=== PATIENT | female | born 1980 | race Caucasian/White ===

== ENCOUNTER 2017-05-25 11:40 | Inpatient (IN) | payer OTHER ==
[2017-05-25] MEDS ORDERED: DEXTROSE 5%-LACTATED RINGERS 1,000 ML IV SCH (12:45)
[2017-05-25] MEDS ORDERED: AMPICILLIN - 2 GM in SODIUM CHLORIDE 100 ML IVPB ONE ×2 (13:10→14:00)
[2017-05-25 13:38] VITALS: BMI 27.4
[2017-05-25 13:44] LABS: BASO % 0.2 % (0-2.0); EOS % 0.3 % (0-4.5); HEMATOCRIT 39.6 % (32.4-45.2); HEMOGLOBIN 13.1 GM/dL (10.7-15.3); LYMPH % 16.8 % (8-40); MCHC 33.1 g/dl (32.0-36.0); MEAN CELL VOLUME 87.5 fl (80-96); MEAN PLT VOLUME 8.2 fl (7.5-11.1); MONO % 8.1 % (3.8-10.2); NEUT % 74.6 % (42.8-82.8); PLATELET COUNT 292 K/MM3 (134-434); RBC 4.52 M/mm3 (3.60-5.2); RDW 15.1 % (11.6-15.6); WHITE BLOOD COUNT 8.1 K/mm3 (4.0-10.0)
[2017-05-25] MEDS ORDERED: AMPICILLIN SODIUM 2 GM VIAL ONE (13:54)
[2017-05-25 14:05] LABS: ANION GAP 14 (8-16); BLOOD UREA NITROGEN 7 mg/dL (7-18); CHLORIDE 105 mmol/L (98-107); CO2 21 mmol/L (21-32); CREATININE 0.5 mg/dL (0.55-1.02); GLUCOSE,RANDOM 74 mg/dL (74-106); POTASSIUM 4.1 mmol/L (3.5-5.1); SODIUM 140 mmol/L (136-145)
[2017-05-25 14:06] LABS: INR 0.96 (0.82-1.09); PROTHROMBIN TIME (PATIENT) 10.8 SEC (9.98-11.88)
[2017-05-25 14:08] LABS: ACTIVATED PTT 27.7 SECONDS (26.9-34.4)
[2017-05-25] MEDS ORDERED: AMPICILLIN - 1 GM in SODIUM CHLORIDE 100 ML IVPB SCH (18:00)
[2017-05-25] MEDS ORDERED: AMPICILLIN SODIUM 1 GM VIAL ONE (18:00)
[2017-05-25] MEDS ORDERED: ELECTROLYTE-148 SOLN 500 ML IV ONE (18:12)
--- NOTE | 2017-05-25 18:19 | HP ---
Past Medical History - Admission Chief Complaint: Labor pain History of Present Illness: 36 yo @ 39 weeks gestation, EDC 05/30/17, admitted for labor pain. upon admission she was 3cm dilated. History Source: Patient Limitations to Obtaining History: No Limitations - Past Medical History ...: 7 ...Para: 5 ...Term: 5 ...: 0 ...Spon : 1 ...Induced : 0 ...Multiple Gestation: 0 ...LMP: 09/13/16 ... Weeks Gestation by Dates: 36.2 ...EDC by Dates: 06/20/17 ...EDC by Sono: 05/30/17 - Past Surgical History Past Surgical History: Yes: None Hx Myomectomy: No Hx Transabdominal Cerclage: No - Smoking History Smoking history: Never smoked Have you smoked in the past 12 months: No - Alcohol/Substance Use Hx Alcohol Use: No History of Substance Use: reports: None - Social History Usual Living Arrangement: Yes: With Significant Other History of Recent Travel: No Home Medications - Allergies Allergies/Adverse Reactions: Allergies Allergy/AdvReac Type Severity Reaction Status Date / Time No Known Drug Allergies Allergy Verified 12/15/13 04:19 - Home Medications Home Medications: Ambulatory Orders Vitamins (Sjr) - 1 tab PO DAILY 12/15/13 Ibuprofen [Motrin -] 600 mg PO Q4H PRN #0 tablet 12/17/13 Vitamins (Sjr) - 1 tab PO DAILY #0 tablet 12/17/13 Family Disease History - Family Disease History Family History: Unremarkable Review of Systems - Review of Systems Constitutional: reports: No Symptoms Eyes: reports: No Symptoms HENT: reports: No Symptoms Neck: reports: No Symptoms Cardiovascular: reports: No Symptoms Respiratory: reports: No Symptoms Gastrointestinal: reports: No Symptoms Genitourinary: reports: Pain Breasts: reports: No Symptoms Reported Musculoskeletal: reports: No Symptoms Integumentary: reports: No Symptoms Neurological: reports: No Symptoms Endocrine: reports: No Symptoms Hematology/Lymphatic: reports: No Symptoms Psychiatric: reports: No Symptoms Pain Intensity: 6 Physical Exam - Maternity Vital Signs: Vital Signs Temperature 98.0 F 05/25/17 16:00 Pulse Rate 64 05/25/17 17:00 Respiratory Rate 18 05/25/17 17:00 Blood Pressure 101/67 05/25/17 17:00 O2 Sat by Pulse Oximetry (%) Constitutional: Yes: Well Nourished Eyes: Yes: Conjunctiva Clear HENT: Yes: Atraumatic Neck: Yes: Supple Cardiovascular: Yes: Regular Rate and Rhythm Lungs: Clear to auscultation Breast(s): Yes: WNL - Abdominal Exam/OB Number of Fetuses: Single Contractions: Yes Regularity: Irregular Intensity: Mild/Mod - Vaginal Exam/OB Dilatation (cm): 3 Effacement (%): 70 Amniotic Membrane Status: Intact Station: -2 - Physical Exam ...Motor Strength: WNL Psychiatric: Yes: Alert, Oriented - Labs Lab Results: CBC, BMP 05/25/17 13:20 05/25/17 13:20 Problem List - Problems (1) Pain during labor Code(s): O99.89 - OTH DISEASES AND CONDITIONS COMPL PREG/CHLDBRTH; R52 - PAIN, UNSPECIFIED (2) 39 weeks gestation of Code(s): Z3A.39 - 39 WEEKS GESTATION OF (3) Breech Code(s): O32.1XX0 - MATERNAL CARE FOR BREECH PRESENTATION, UNSP (4) Status post primary low transverse section Code(s): Z98.891 - HISTORY OF UTERINE SCAR FROM PREVIOUS SURGERY Assessment/Plan IUP @ 39 weeks Labor pain Admit to L&D Anticipate
--- NOTE | 2017-05-25 18:26 | PN ---
Progress Note (short form) - Note Progress Note: Patient seen and evaluated. She c/o mild discomfort. FHR : Reassuring Meggett : + regular contractions VE : 80 / -1 AROM ( Meconium ) Evidence of breech presentation A / P : Breech presentation @ 39 weeks gestation Multiparity Pre op for primary Consent signed Clinical Practitioner informed Anesthesia to see patient Problem List - Problems (1) Pain during labor Code(s): O99.89 - OTH DISEASES AND CONDITIONS COMPL PREG/CHLDBRTH; R52 - PAIN, UNSPECIFIED (2) 39 weeks gestation of Code(s): Z3A.39 - 39 WEEKS GESTATION OF (3) Breech Code(s): O32.1XX0 - MATERNAL CARE FOR BREECH PRESENTATION, UNSP (4) Status post primary low transverse section Code(s): Z98.891 - HISTORY OF UTERINE SCAR FROM PREVIOUS SURGERY
[2017-05-25] MEDS ORDERED: ELECTROLYTE-148 SOLN 1,000 ML IV SCH (18:41)
[2017-05-25] MEDS ORDERED: CITRIC ACID/SODIUM CITRATE 30 ML UNIT-DOSE CUP PO ONE (18:45)
[2017-05-25] MEDS ORDERED: ceFAZolin SODIUM 1 GM VIAL ONE (18:49)
[2017-05-25] MEDS ORDERED: morphine SULFATE/Preservative Free 0.5 MG/ML (1cc Syringe) ONE (19:00)
[2017-05-25] MEDS ORDERED: BUPIVACAINE 0.75% IN DEXTROSE/PF 2ML AMPULE NR ONE (19:25)
--- NOTE | 2017-05-25 20:03 | PN ---
Progress Note (short form) - Note Progress Note: Attended C/s for this 36yrs old mother who presented to DR in labor PNL - nl , GBS - UK received 2 doses of Amp. AROM showed Breech/ with thick Mec- C/s done. Infant cried soon after suctioned/ dried cord 3V 9/9 PE: alert/ active, not in distress HEENT: Normocephalic, AFOF Chest B/L symm. No heart murmur, No organomegaly Gu nl female, Ext: From Good tone and activity. Term female infant C/S for Breech/ Thick Mec RNBC Watch for resp distress Encourage BF/ Bonding Hip sono 4-6weeks
[2017-05-25] MEDS ORDERED: ONDANSETRON 4 MG/2 ML VIAL IVPUSH PRN (20:22)
[2017-05-25] MEDS ORDERED: IBUPROFEN 800 MG/8 ML IJ IVPB PRN (20:25)
[2017-05-25] MEDS ORDERED: METHYLERGONOVINE MALEATE 0.2 MG/1 ML AMP IM PRN (20:25)
--- NOTE | 2017-05-25 20:25 | OP ---
Operative Note - Note: Operative Date: 05/25/17 Pre-Operative Diagnosis: 39 weeks gestation / Breech presentation / Multiparity Operation: Primary Low Transverse / Bilateral tubal ligation Findings: Baby girl in RSA position Post-Operative Diagnosis: Same as Pre-op Surgeon: Mikala Patino Cans Vacuum Tester: Tyree Thibodeaux Anesthesia: Spinal Specimens Removed: Placenta / Portion of fallopian tubes Estimated Blood Loss (mls): 600
[2017-05-25] MEDS ORDERED: morphine SULFATE/Preservative Free 0.5 MG/ML (1cc Syringe) SPIN ONE (20:30)
[2017-05-25] MEDS ORDERED: OXYTOCIN 20 UNITS in 0.9% NS 20 UNIT/1,000 ML INFUS.BAG IV SCH (20:30)
[2017-05-25] MEDS ORDERED: OXYTOCIN 20 UNITS in 0.9% NS 20 UNIT/1,000 ML INFUS.BAG IV ONE (20:56)
--- NOTE | 2017-05-26 07:49 | PN ---
Post Progress Note - Subjective Subjective: 36 yo Para 6 status post primary , seen and evaluated. She's lying in bed; c/o incision pain. Post Day: 1 Type of Delivery: Primary C/S Vital Signs: Vital Signs Temperature 98.6 F 05/25/17 22:00 Pulse Rate 94 H 05/25/17 22:00 Respiratory Rate 20 05/26/17 07:00 Blood Pressure 132/96 05/25/17 22:00 O2 Sat by Pulse Oximetry (%) 100 05/25/17 21:15 Breast Exam: Yes: Soft Incision: Yes: Dressing dry and intact Abdomen/GI: Yes: Abdomen soft Lochia: Yes: Rubra Lochia, amount: Small Extremities: Yes: Calves non-tender Perineum: Yes: Intact Activity: Other (She's lying in bed) - Labs Labs: CBC WBC 8.1 K/mm3 (4.0-10.0) 05/25/17 13:20 RBC 4.52 M/mm3 (3.60-5.2) 05/25/17 13:20 Hgb 13.1 GM/dL (10.7-15.3) 05/25/17 13:20 Hct 39.6 % (32.4-45.2) 05/25/17 13:20 MCV 87.5 fl (80-96) 05/25/17 13:20 MCH 29.0 pg (25.7-33.7) 05/25/17 13:20 MCHC 33.1 g/dl (32.0-36.0) 05/25/17 13:20 RDW 15.1 % (11.6-15.6) 05/25/17 13:20 Plt Count 292 K/MM3 (134-434) D 05/25/17 13:20 MPV 8.2 fl (7.5-11.1) 05/25/17 13:20 Neutrophils % 74.6 % (42.8-82.8) 05/25/17 13:20 Lymphocytes % 16.8 % (8-40) D 05/25/17 13:20 Monocytes % 8.1 % (3.8-10.2) D 05/25/17 13:20 Eosinophils % 0.3 % (0-4.5) 05/25/17 13:20 Basophils % 0.2 % (0-2.0) 05/25/17 13:20 Problem List - Problems (1) Pain during labor Code(s): O99.89 - OTH DISEASES AND CONDITIONS COMPL PREG/CHLDBRTH; R52 - PAIN, UNSPECIFIED (2) 39 weeks gestation of Code(s): Z3A.39 - 39 WEEKS GESTATION OF (3) Breech Code(s): O32.1XX0 - MATERNAL CARE FOR BREECH PRESENTATION, UNSP (4) Status post primary low transverse section Code(s): Z98.891 - HISTORY OF UTERINE SCAR FROM PREVIOUS SURGERY Assessment/Plan Status post primary Ambulation Analgesia as needed Continue routine post op care
[2017-05-26 08:06] LABS: BASO % 0.2 % (0-2.0); EOS % 0.3 % (0-4.5); HEMATOCRIT 31.2 % (32.4-45.2); HEMOGLOBIN 10.4 GM/dL (10.7-15.3); LYMPH % 10.2 % (8-40); MCH 29.2 pg (25.7-33.7); MCHC 33.4 g/dl (32.0-36.0); MEAN CELL VOLUME 87.3 fl (80-96); MONO % 6.9 % (3.8-10.2); NEUT % 82.4 % (42.8-82.8); PLATELET COUNT 230 K/MM3 (134-434); RBC 3.57 M/mm3 (3.60-5.2); RDW 15.1 % (11.6-15.6); WHITE BLOOD COUNT 11.7 K/mm3 (4.0-10.0)
[2017-05-26] MEDS: FERROUS SO4 325 MG TABLET (FP) PO SCH ×2 (08:39→17:36)
--- NOTE | 2017-05-26 09:34 | PN ---
Progress Note (short form) - Note Progress Note: Anesthesia postop note 36 y/o F s/p spinal anesthesia/ duramorph for section and bilateral tubal ligation POD#1, vss, aaox3, pain well controlled, sensory motor intact distally, no complaints. No anesthesia complications.
[2017-05-26] MEDS: PRENATAL VITAMINS W/ FOLIC ACID TABLET (FP) PO SCH (09:36)
[2017-05-26] MEDS: SIMETHICONE 80 MG TAB.CHEW (FP) PO PRN ×2 (14:20→19:12)
[2017-05-26] MEDS: IBUPROFEN 600 MG TABLET (FP) PO PRN ×2 (14:20→19:11)
[2017-05-26] MEDS ORDERED: ACETAMINOPHEN 325 MG TABLET (FP) PO PRN (15:36)
[2017-05-26] MEDS: oxyCODONE HCL 5 MG TABLET PO PRN (19:12)
[2017-05-26] MEDS ORDERED: BISACODYL 10 MG SUPP.RECT RC PRN (20:28)
[2017-05-27] MEDS: SIMETHICONE 80 MG TAB.CHEW (FP) PO PRN ×4 (00:12→23:57)
[2017-05-27] MEDS: IBUPROFEN 600 MG TABLET (FP) PO PRN ×4 (00:13→23:57)
[2017-05-27] MEDS: oxyCODONE HCL 5 MG TABLET PO PRN ×3 (00:13→23:58)
--- NOTE | 2017-05-27 07:25 | PN ---
Post Progress Note Post Day: 2 Type of Delivery: Primary C/S Vital Signs: Vital Signs Temperature 98.7 F 05/26/17 21:00 Pulse Rate 81 05/26/17 21:00 Respiratory Rate 18 05/26/17 21:00 Blood Pressure 116/66 05/26/17 21:00 O2 Sat by Pulse Oximetry (%) 100 05/25/17 21:15 Breast Exam: Yes: Soft Uterus: Yes: Fundus Firm, Fundus below umbilicus Incision: Yes: Sutures intact Abdomen/GI: Yes: Abdomen soft, Passing flatus, Tolerating PO Lochia: Yes: Rubra Lochia, amount: Moderate Extremities: Yes: Calves non-tender Perineum: Yes: Intact Activity: Ambulating - Labs Labs: CBC WBC 11.7 K/mm3 (4.0-10.0) H D 05/26/17 06:00 RBC 3.57 M/mm3 (3.60-5.2) L D 05/26/17 06:00 Hgb 10.4 GM/dL (10.7-15.3) L D 05/26/17 06:00 Hct 31.2 % (32.4-45.2) L D 05/26/17 06:00 MCV 87.3 fl (80-96) 05/26/17 06:00 MCH 29.2 pg (25.7-33.7) 05/26/17 06:00 MCHC 33.4 g/dl (32.0-36.0) 05/26/17 06:00 RDW 15.1 % (11.6-15.6) 05/26/17 06:00 Plt Count 230 K/MM3 (134-434) D 05/26/17 06:00 MPV 8.0 fl (7.5-11.1) 05/26/17 06:00 Neutrophils % 82.4 % (42.8-82.8) 05/26/17 06:00 Lymphocytes % 10.2 % (8-40) D 05/26/17 06:00 Monocytes % 6.9 % (3.8-10.2) 05/26/17 06:00 Eosinophils % 0.3 % (0-4.5) 05/26/17 06:00 Basophils % 0.2 % (0-2.0) 05/26/17 06:00 Other Findings, Remarks: condition stable continue current care
--- NOTE | 2017-05-27 07:29 | PN ---
Post Progress Note - Subjective Subjective: c/o pain scale 4-6/10. passing flatus voiding without difficulty Post Day: 2 Type of Delivery: Primary C/S Vital Signs: Vital Signs Temperature 98.7 F 05/26/17 21:00 Pulse Rate 81 05/26/17 21:00 Respiratory Rate 18 05/26/17 21:00 Blood Pressure 116/66 05/26/17 21:00 O2 Sat by Pulse Oximetry (%) 100 05/25/17 21:15 Breast Exam: Yes: Soft. No: Engorged Uterus: Yes: Fundus Firm, Fundus below umbilicus, Non-tender Incision: Yes: Sutures intact. No: Redness, Oozing Abdomen/GI: Yes: Abdomen soft, Passing flatus (bm not done ), Tolerating PO ( diet). No: Abdominal Distention, Tender Lochia: Yes: Rubra Lochia, amount: Moderate Extremities: Yes: Calves non-tender Perineum: Yes: Intact Activity: Ambulating - Labs Labs: CBC WBC 11.7 K/mm3 (4.0-10.0) H D 05/26/17 06:00 RBC 3.57 M/mm3 (3.60-5.2) L D 05/26/17 06:00 Hgb 10.4 GM/dL (10.7-15.3) L D 05/26/17 06:00 Hct 31.2 % (32.4-45.2) L D 05/26/17 06:00 MCV 87.3 fl (80-96) 05/26/17 06:00 MCH 29.2 pg (25.7-33.7) 05/26/17 06:00 MCHC 33.4 g/dl (32.0-36.0) 05/26/17 06:00 RDW 15.1 % (11.6-15.6) 05/26/17 06:00 Plt Count 230 K/MM3 (134-434) D 05/26/17 06:00 MPV 8.0 fl (7.5-11.1) 05/26/17 06:00 Neutrophils % 82.4 % (42.8-82.8) 05/26/17 06:00 Lymphocytes % 10.2 % (8-40) D 05/26/17 06:00 Monocytes % 6.9 % (3.8-10.2) 05/26/17 06:00 Eosinophils % 0.3 % (0-4.5) 05/26/17 06:00 Basophils % 0.2 % (0-2.0) 05/26/17 06:00 Assessment/Plan s/p primary c/section stable. plan ct po care encourage ambulation, po fluids, deep breathing
[2017-05-27] MEDS: FERROUS SO4 325 MG TABLET (FP) PO SCH ×2 (08:28→18:09)
[2017-05-27] MEDS: PRENATAL VITAMINS W/ FOLIC ACID TABLET (FP) PO SCH (10:16)
[2017-05-28] MEDS: FERROUS SO4 325 MG TABLET (FP) PO SCH (07:48)
[2017-05-28] MEDS: IBUPROFEN 600 MG TABLET (FP) PO PRN (08:10)
[2017-05-28] MEDS: SIMETHICONE 80 MG TAB.CHEW (FP) PO PRN (08:10)
[2017-05-28] MEDS: oxyCODONE HCL 5 MG TABLET PO PRN (08:11)
[2017-05-28 09:02] VITALS: BP 106/66; PULSE 80; TEMP 97.3
[2017-05-28 09:46] LABS: BASO % 0.2 % (0-2.0); EOS % 1.7 % (0-4.5); HEMATOCRIT 31.5 % (32.4-45.2); HEMOGLOBIN 10.5 GM/dL (10.7-15.3); LYMPH % 8.7 % (8-40); MCH 29.2 pg (25.7-33.7); MCHC 33.3 g/dl (32.0-36.0); MEAN CELL VOLUME 87.7 fl (80-96); MEAN PLT VOLUME 7.5 fl (7.5-11.1); MONO % 4.9 % (3.8-10.2); NEUT % 84.5 % (42.8-82.8); PLATELET COUNT 259 K/MM3 (134-434); RDW 15.6 % (11.6-15.6); WHITE BLOOD COUNT 9.7 K/mm3 (4.0-10.0)
[2017-05-28] MEDS: PRENATAL VITAMINS W/ FOLIC ACID TABLET (FP) PO SCH (10:08)
--- NOTE | 2017-05-28 11:15 | DS ---
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 Vital Signs: Vital Signs Temperature 97.3 F L 05/28/17 08:00 Pulse Rate 80 05/28/17 08:00 Respiratory Rate 16 05/28/17 08:00 Blood Pressure 106/66 05/28/17 08:00 O2 Sat by Pulse Oximetry (%) 100 05/25/17 21:15 Constitutional: Yes: Well Nourished Eyes: Yes: Conjunctiva Clear HENT: Yes: Atraumatic Neck: Yes: Supple Cardiovascular: Yes: Regular Rate and Rhythm Respiratory: Yes: Regular Gastrointestinal: Yes: Normal Bowel Sounds Pelvis: Yes: WNL External Genitalia: Yes: Normal Vaginal Exam: Yes: Normal Uterus: Yes: Firm Wound/Incision: Yes: Clean/Dry, Steri Strips (in place) Neurological: Yes: Alert, Oriented ...Motor Strength: WNL Psychiatric: Yes: Alert, Oriented Labs: CBC, BMP 05/28/17 09:35 05/25/17 13:20 Delivery - Delivery Type of Anesthesia: Spinal Episiotomy/Laceration: None EBL (cc): 600 Delivery, Single - Stages of Labor Date 1st Stage Initiatied: 05/25/17 Time 1st Stage Initiated: 07:00 Date of Delivery: 05/25/17 Time of Delivery: 19:44 Time Placenta Delivered: 19:45 - Condition of Infant 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 Present: Yes Name: Sebastien Eric Infant Gender: Female Weight: 6 lb 14 oz Position: Right, SA Total Hours ROM (Hrs/Mins): 1hr 40min - 1 Minute Total Score: 9 5 Minutes Total Score: 9 - Balm Feeding Plan Initial Plan: Elected not to breastfeed exclusively throughout hospitalization Discharge Summary Reason For Visit: LABOR Current Active Problems 39 weeks gestation of (Acute) Breech (Acute) Pain during labor (Acute) Status post primary low transverse section (Acute) Procedures: Principal: Primary Low Transverse Hospital Course: Routine post op care Condition: Good - Instructions Diet, Activity, Other Instructions: Regular diet No driving, no lifting x 4 weeks F/U in clinic in 2 weeks Disposition: HOME - Home Medications Comprehensive Discharge Medication List: Ambulatory Orders Vitamins (Sjr) - 1 tab PO DAILY 12/15/13 Ibuprofen [Motrin -] 600 mg PO Q4H PRN #0 tablet 12/17/13 Vitamins (Sjr) - 1 tab PO DAILY #0 tablet 12/17/13
--- NOTE | 2017-05-29 13:54 | PATH ---
Surgical Pathology Report Patient Name: TIEN SMITH [facility]. Rec. 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 Specimen(s) Received A: PLACENTA B: RIGHT FALLOPIAN TUBE C: LEFT FALLOPIAN TUBE Clinical History , x5, spontaneous AB x1, breech presentation Final Diagnosis A. PLACENTA, DELIVERY: FOCALLY DISRUPTED THIRD TRIMESTER PLACENTA WITH THREE VESSEL UMBILICAL CORD AND UNREMARKABLE PLACENTAL MEMBRANES. B. RIGHT FALLOPIAN TUBE, PARTIAL SALPINGECTOMY: FULL LUMINAL PORTION OF UNREMARKABLE FALLOPIAN TUBE. C. LEFT FALLOPIAN TUBE, PARTIAL SALPINGECTOMY: FULL LUMINAL PORTION OF UNREMARKABLE FALLOPIAN TUBE. Electronically Signed Roel Hackett M.D. Gross Description A. The specimen is received fresh labeled placenta and is a 434 gram, 14.0 x 13.5 x 3.0 cm. placenta with attached membranes and umbilical cord. The attached membranes are hsieh, translucent with focal opacities and insert marginally. The umbilical cord measures 30 cm. in length and averages 1 cm. in diameter. The cord inserts eccentrically, 1.5 cm. to the nearest margin. No true knots or strictures are identified. Cut surface of the umbilical cord reveals 3 vessels. The surface is del castillo-blue with minimal fibrin deposition and appropriate caliber vessels. The maternal surface is red-brown with focal defects. Sectioning reveals red-brown, spongy parenchyma. No lesions are identified. Product Safety Expert sections are submitted in three cassettes as follows: 1- membrane rolls and umbilical cord; 2-3- full thickness sections of placenta. B. Received in formalin labeled "portion of right fallopian tube," is a 1.1 cm in length portion of fallopian tube. No fimbria are present. The outer surface is hsieh-hussein and smooth. Sectioning reveals an unremarkable lumen. Product Safety Expert sections are submitted in one cassette. C. Received in formalin labeled "portion of left fallopian tube," is a 1.3 cm in length portion of fallopian tube. No fimbria are present. The outer surface is hsieh-hussein and smooth. Sectioning reveals an unremarkable lumen. Product Safety Expert sections are submitted in one cassette. 05/28/2017 [facility]05/28/2017
== END 2017-05-28 14:55 | disposition home or self-care (01) | DRG 540 ==
LOC: JDEL 11:40 → JLDR 12:45 → J3W 21:35
PROVIDERS: ADMIT Obstetrics & Gynecology; ATTEND Obstetrics & Gynecology
PROC: 10D00Z1 Extraction of Products of Conception, Low, Open Approach (ICD-10-PCS; principal; 2017-05-25)
PROC: 0UB70ZZ Excision of Bilateral Fallopian Tubes, Open Approach (ICD-10-PCS; 2017-05-25)
DX: O32.1XX0 Maternal care for breech presentation, not applicable or unspecified (principal); Z3A.39 39 weeks gestation of pregnancy; Z37.0 Single live birth; Z30.2 Encounter for sterilization
CPT/HCPCS: 36415; 59025; 80048; 85025; 85610; 85730; 86593; 86850; 86900; 86901